=== PATIENT | male | born 1985 | race Caucasian/White ===

== ENCOUNTER 2020-09-04 12:44 | Emergency (ER) | payer OTHER ==
[~2020-09-04] VITALS: Ht 188 cm; Wt 90.0 kg
[2020-09-04] MEDS ORDERED: GLUCAGON INJ 1MG VIAL IV STA (13:26)
[2020-09-04 15:30] VITALS: BP 110/78
== END 2020-09-04 15:42 | disposition left against medical advice (07) ==
LOC: M ED 12:44
DX: T18.108A Unspecified foreign body in esophagus causing other injury, initial encounter (principal); Z53.9 Procedure and treatment not carried out, unspecified reason; Z79.899 Other long term (current) drug therapy
CPT/HCPCS: 96374; 99284; J1610; U0002

== ENCOUNTER 2020-09-04 20:46 | Day surgery (SDC) | payer OTHER ==
[~2020-09-04] VITALS: Ht 188 cm; Wt 90.9 kg
[2020-09-04] MEDS ORDERED: NS 500 ML IV ONE (21:15)
[2020-09-04] MEDS ORDERED: ONDANSETRON 4MG/2ML VIAL IV ONE (21:15)
[2020-09-04] MEDS ORDERED: MORPHINE 2 MG/ML 1ML VIAL (J2270) IV PRN ×3 (21:15→23:45)
[2020-09-04 21:32] LABS: BASO # 0.1 10^3/uL (0.0-0.2); BASO % 0.4 % (0.0-1.0); EOS # 0.1 10^3/uL (0.0-0.5); EOS % 0.4 % (0.0-3.0); HEMATOCRIT 52.7 % (42.0-52.0); HEMOGLOBIN 17.5 g/dl (13.5-17.5); LYMPH # 1.3 10^3/uL (1.5-5.0); LYMPH % 7.8 % (24.0-44.0); MEAN CORPUSCULAR HEMOGLOBIN 29.8 pg (27.0-33.0); MEAN CORPUSCULAR HGB CONC 33.2 g/dl (32.0-36.5); MEAN CORPUSCULAR VOLUME 89.8 fl (80.0-96.0); MONO # 0.8 10^3/uL (0.0-0.8); MONO % 4.8 % (0.0-5.0); NEUTROPHILS # 14.8 10^3/uL (1.5-8.5); NEUTROPHILS % 86.1 % (36.0-66.0); PLATELET COUNT, AUTOMATED 310 10^3/uL (150-450); RED BLOOD COUNT 5.87 10^6/uL (4.30-6.10); WHITE BLOOD COUNT 17.1 10^3/uL (4.0-10.0)
[2020-09-04 21:52] LABS: CALCIUM LEVEL 9.8 MG/DL (8.5-10.1); CREATININE FOR GFR 1.52 MG/DL (0.70-1.30); GLOMERULAR FILTRATION RATE 56.5 (>60); POTASSIUM SERUM 3.9 MEQ/L (3.5-5.1)
--- NOTE | 2020-09-04 22:04 | REPVR ---
PROCEDURE INFORMATION: Exam: CT Chest Without Contrast Exam date and time: 09/04/2020 9:19 PM Age: 35 years old Clinical indication: Other: Esophageal obstruction; Additional info: Esophageal obstruction, possible perforation TECHNIQUE: Imaging protocol: Computed tomography of the chest without contrast. 3D rendering (Not supervised by radiologist): MIP and/or 3D reconstructed images were created by the technologist. Radiation optimization: All CT scans at this facility use at least one of these dose optimization techniques: automated exposure control; mA and/or kV adjustment per patient size (includes targeted exams where dose is matched to clinical indication); or iterative reconstruction. COMPARISON: No relevant prior studies available. FINDINGS: Lungs: Unremarkable. No consolidation. No masses. Pleural space: Unremarkable. No pneumothorax. No pleural effusion. Heart: No pericardial effusion. Normal heart size. Mediastinal space: Proximal esophagus is mildly distended with some intraluminal fluid. Mild intramural pneumatosis is present in the midportion of the esophagus. Esophagus below the level of the scottie appears thick walled with some air and intraluminal debris in the esophageal lumen. No hiatal hernia is seen. No mediastinal abscess, extraluminal air, or inflammatory changes. No mediastinal mass. Aorta: Unremarkable. No aortic aneurysm. Lymph nodes: Unremarkable. No enlarged lymph nodes. Stomach and bowel: GE junction appears grossly unremarkable. Bones/joints: Unremarkable. No acute fracture. Soft tissues: Unremarkable. IMPRESSION: 1. Mildly thickened distal esophagus with nonspecific intraluminal debris. Distended fluid containing upper esophagus with area of intramural pneumatosis in the mid esophageal wall. Findings could be seen in the setting of a Sylvia-Dawkins tear or other esophageal injury. Fluoroscopic esophagram or endoscopy may be beneficial. 2. No abscess or mediastinal inflammatory changes. Electronically signed by: Jun Strickland On 09/04/2020 22:04:16 PM
[2020-09-04] MEDS ORDERED: ROCURONIUM BROMIDE 50 MG/5 ML VIAL As Ordered ONE (22:18)
[2020-09-04] MEDS ORDERED: LIDOCAINE 2% 100MG/5ML SDV (FOR ANES.) As Ordered ONE (22:18)
[2020-09-04] MEDS ORDERED: propofoL 200 MG/20 ML VIAL As Ordered ONE (22:18)
[2020-09-04] MEDS ORDERED: MIDAZOLAM INJ 2MG/2ML VIAL (J2250 PER 1MG) As Ordered ONE (22:19)
[2020-09-04] MEDS ORDERED: fentaNYL 100 MCG/2 ML INJECTION (J3010) As Ordered ONE ×2 (22:19→23:43)
[2020-09-04] MEDS ORDERED: dexameTHASONE 4 MG/ML 1ML VIAL (J1100 PER 1MG) As Ordered ONE (22:33)
[2020-09-04] MEDS ORDERED: KETOROLAC 60MG 2ML VIAL As Ordered ONE (22:33)
[2020-09-04] MEDS ORDERED: ONDANSETRON 4MG/2ML VIAL As Ordered ONE (22:33)
[2020-09-04] MEDS ORDERED: SUCCINYLCHOLINE 100 MG/5 ML SYRINGE (J0330) As Ordered ONE (22:39)
[2020-09-05] VITALS (11 sets, daily range): BP systolic 98–118; BP diastolic 54–74
[2020-09-05] MEDS: NS 1,000 ML IV SCH ×4 (00:10→21:10)
[2020-09-05] MEDS ORDERED: PERCOCET 5MG/325MG TAB PO PRN (00:15)
[2020-09-05] MEDS ORDERED: MEPERIDINE INJ 25 MG/ML VIAL (J2175) IV PRN (00:15)
[2020-09-05] MEDS ORDERED: ONDANSETRON 4MG/2ML VIAL IV PRN (00:15)
[2020-09-05] MEDS ORDERED: METOCLOPRAMIDE INJ 10MG/2ML VIAL (J2765 PER 1) IV PRN (00:15)
[2020-09-05] MEDS ORDERED: fentaNYL 100 MCG/2 ML INJECTION (J3010) IV PRN (00:15)
[2020-09-05] MEDS: PIPERACILLIN/TAZOBACTAM SOD 3.375 GM in D5W MINI-BAG PLUS 50 ML IV SCH ×4 (01:07→17:28)
[2020-09-05] MEDS: SUCRALFATE 1 GM TAB PO SCH ×4 (01:07→17:28)
[2020-09-05] MEDS: PANTOPRAZOLE 40MG VIAL (C9113 PER 1) IV SCH ×3 (01:08→21:29)
[2020-09-05] MEDS: KETOROLAC 30 MG/ML 1ML VIAL IV SCH ×3 (05:46→17:28)
[2020-09-05 06:41] LABS: HEMATOCRIT 44.8 % (42.0-52.0); MEAN CORPUSCULAR HEMOGLOBIN 29.9 pg (27.0-33.0); MEAN CORPUSCULAR HGB CONC 32.8 g/dl (32.0-36.5); MEAN CORPUSCULAR VOLUME 91.2 fl (80.0-96.0); PLATELET COUNT, AUTOMATED 238 10^3/uL (150-450); RED BLOOD COUNT 4.91 10^6/uL (4.30-6.10); WHITE BLOOD COUNT 17.9 10^3/uL (4.0-10.0)
[2020-09-05 06:57] LABS: BLOOD UREA NITROGEN 24 MG/DL (7-18); CALCIUM LEVEL 8.3 MG/DL (8.5-10.1); CARBON DIOXIDE LEVEL 25 MEQ/L (21-32); CHLORIDE LEVEL 113 MEQ/L (98-107); CREATININE FOR GFR 1.38 MG/DL (0.70-1.30); GLOMERULAR FILTRATION RATE > 60.0 (>60); GLUCOSE, FASTING 130 MG/DL (70-100); POTASSIUM SERUM 4.5 MEQ/L (3.5-5.1); SODIUM LEVEL 143 MEQ/L (136-145)
[2020-09-05 07:01] LABS: HEMOGLOBIN 14.7 g/dl (13.5-17.5)
[2020-09-06] MEDS: PIPERACILLIN/TAZOBACTAM SOD 3.375 GM in D5W MINI-BAG PLUS 50 ML IV SCH ×2 (01:11→06:10)
[2020-09-06] MEDS: SUCRALFATE 1 GM TAB PO SCH ×2 (01:11→06:10)
[2020-09-06 02:00] VITALS: BP 101/58
[2020-09-06 06:00] VITALS: BP 94/50
[2020-09-06] MEDS: KETOROLAC 30 MG/ML 1ML VIAL IV SCH ×2 (06:00)
[2020-09-06] MEDS ORDERED: OMEP40CA97 PO (08:27)
[2020-09-06] MEDS: PANTOPRAZOLE 40MG VIAL (C9113 PER 1) IV SCH (09:34)
[2020-09-06 10:00] VITALS: BP 115/60
--- NOTE | 2020-09-07 07:03 | HPE ---
DATE OF ADMISSION: 09/04/2020 CHIEF COMPLAINT: Esophageal foreign body/food impaction. BRIEF HISTORY OF PRESENT ILLNESS: Patient is a 35-year-old male who was eating a chicken sandwich, and while he was eating his dog hit him in such a manner that he took a deep breath and swallowed a large piece of food without chewing it. He has had an episode of problems with an esophageal foreign body in the past but has not had any problems recently, and this was in the remote past. Otherwise does to complain of any gastroesophageal (GE) reflux issues. No dysphagia issues. No other complaints from his recent history. In any case, since he had this food impaction, he came to the emergency room, was diagnosed with this. We discussed taking him to the operating room, and [place] He left against medical advice (AMA) and returns now for re-evaluation. On his way back to the hospital, he developed increasing chest pain with some hematemesis, and the pain was spreading across his chest into his back to some extent as well. He had no nausea. He still was spitting up saliva. MEDICAL HISTORY: Noncontributory.. MEDICATIONS: None. ALLERGIES: None. PHYSICAL EXAMINATION: Reveals a 35-year-old male who looks stated age. HEENT: Unremarkable. NECK: Supple without adenopathy. LUNGS: Clear to auscultation. ABDOMEN: Soft, nontender, nondistended. IMPRESSION AND PLAN: Patient has an esophageal foreign body. I asked the emergency room (ER) to obtain a CT of his chest, and indeed they did get one. I am not seeing any evidence of perforation into his mediastinum, but there is definitely some thickening throughout the esophagus. It is hard to tell what is going on with all that fluid and food in there, but otherwise I am not seeing any free air in the mediastinum. No pleural effusions. At this point, we will plan on operative intervention, i.e, esophagogastroduodenoscopy (EGD) with food disimpaction/removal of foreign body. Patient understands risks as well as benefits associated with this, those including, but not limited to, infection, bleeding, damage to surrounding structures as well as damage to the esophagus, perforation of the esophagus, etc. He understands and would like to proceed with this as soon as possible. [facility]
--- NOTE | 2020-09-07 07:05 | IPN ---
DATE: 09/05/2020 Patient was admitted last night with a foreign body/esophageal food impaction, and today he states he is feeling much better. He states the majority of the chest pain and discomfort that he had last night has improved substantially but not completely resolved this morning, and he still has some pressure. I kept him nothing by mouth for the morning and then just checked him after lunch again, and he states that this has improved substantially and he really does not notice much at all at this time. His temperature came down to 98.8, and his vital signs have been stable otherwise. He has not been tachycardic. He has been on room air without shortness of breath. His white count was still elevated this morning but no significant anemia or ongoing bleeding appreciated. His abdomen is soft. His lungs are clear. IMPRESSION AND PLAN: Patient is status post esophageal foreign body. Given that he has had some significant improvement, I will start him on some clear liquids, and we will see how does overnight and then will re-evaluate tomorrow and possibly put him on a full liquid diet. NUPUR
--- NOTE | 2020-09-07 08:21 | RO ---
DATE OF OPERATION: 09/04/2020 PREOPERATIVE DIAGNOSIS: Esophageal foreign body/food impaction. POSTOPERATIVE DIAGNOSIS: Esophageal foreign body/food impaction with Sylvia-Dawkins/esophageal mucosal tear from 30 cm to 40 cm. PROCEDURE: Esophagogastroduodenoscopy (EGD) with food disimpaction/removal of foreign body. SURGEON: Dr. Skip Feliciano ANESTHESIA: General endotracheal anesthesia. ESTIMATED BLOOD LOSS: Minimal. FLUIDS: Crystalloid. BRIEF PROCEDURE SUMMARY: The patient was brought to the operating room and was given general anesthesia. After intubation, the scope was inserted into the posterior oropharynx. There was quite a bit of bloody drainage and saliva in the back of the throat, and I was able to suction this down and then entered into the esophagus, where more significant bloody food was obtained, and it is a little bit fresher blood that I noticed. Eventually I was able to go down into the mid esophagus, and, indeed, there was obvious tear in the esophagus; however, I could see the muscular layer of the esophagus but no evidence of free perforation into the surrounding tissue that I could appreciate. In any case, there was a great deal of meat in place, and this needed to be piecemeal broken down so that I could actually aspirate it, remove some of the bigger pieces, before completely getting this entire structure out, but in general, looking at his esophagus he had the equivalent of 10 cm of tear, one that was about 6-7 cm in length, and then the other one was just starting from its distal end and then distally to it, so about 10 cm in total. In any case, there was no active bleeding when the entire chicken was removed from this area. Definitely had a lot of inflammatory changes to the mucosa throughout. No additional inflammatory process except at the gastroesophageal (GE) junction there was some evidence of inflammatory. It is hard to tell if this is consistent with reflux esophagitis or just the irritation for the food impaction. Anyway, the scope was inserted into the stomach then into the duodenum. The duodenum appeared normal. The stomach appeared normal. No other masses or lesions were appreciated in the stomach, and the scope was removed in its entirety after irrigating the esophagus out completely. The patient was awakened, extubated, and brought to the recovery room awake, alert, hemodynamically stable. MTDD
== END 2020-09-06 11:43 | disposition home or self-care (01) ==
LOC: M ED 20:46 → UNDOADMOB 20:47 → M ED INP 20:47 → M SDC 23:34 → ENRESERV 23:43 → M ED INP 09-05 00:35 → M MSPAV 09-05 00:35 → UNDODISOB 09-06 11:43 → M SDC 09-06 11:43
PROVIDERS: ATTEND Surgery
DX: T18.128A Food in esophagus causing other injury, initial encounter (principal); Y92.89 Other specified places as the place of occurrence of the external cause
CPT/HCPCS: 36415; 43247; 71250; 80048; 85025; 85027; 86850; 86900; 86901; 96365; 96366; 96375; 96376; 99284; C9113; J0330; J1100; J1885; J2250; J2270; J2405; J2543; J3010